=== PATIENT | female | born 1950 | race Caucasian/White ===

== ENCOUNTER 2017-10-13 08:39 | Inpatient (IN) | payer MEDICARE ==
[~2017-10-13] VITALS: Ht 157.5 cm; Wt 48.2 kg
[2017-10-13 09:17] LABS: BASOPHILS % (AUTO) 0.3 % (0-1); EOSINOPHILS # (AUTO) 0.1 X10'3 (0-0.9); EOSINOPHILS % (AUTO) 2.9 % (0-6); HEMATOCRIT 38.8 % (35.0-45.0); HEMOGLOBIN 13.1 g/dl (12.0-16.0); LYMPHOCYTES # (AUTO) 1.4 X10'3 (1.1-4.8); LYMPHOCYTES % (AUTO) 29.7 % (21-51); MEAN CORPUSCULAR HEMOGLOBIN 29.3 PG (27.0-31.0); MEAN CORPUSCULAR HGB CONC 33.8 % (33.0-36.5); MEAN CORPUSCULAR VOLUME 86.8 FL (78-98); MEAN PLATELET VOLUME 7.5 FL (7.4-10.4); MONOCYTES # (AUTO) 0.5 X10'3 (0-0.9); NEUTROPHILS # (AUTO) 2.6 X10'3 (1.8-7.7); NEUTROPHILS % (AUTO) 57.1 % (42-75); PLATELET COUNT 248 X10'3 (140-440); RED BLOOD COUNT 4.48 X10'6 (4.20-5.60); RED CELL DISTRIBUTION WIDTH 13.9 % (11.5-14.5); WHITE BLOOD COUNT 4.6 X10'3 (4.5-11.0)
[2017-10-13 09:24] LABS: PARTIAL THROMBOPLASTIN TIME 27 SECONDS (22-32); PROTHROMBIN TIME 10.2 SECONDS (9.0-12.0)
[2017-10-13 09:30] LABS: ALANINE AMINOTRANSFERASE 22 U/L (12-78); ALBUMIN/GLOBULIN RATIO 1.2 (1.1-1.5); ALKALINE PHOSPHATASE 83 IU/L (46-116); ANION GAP 6 (8-16); ASPARTATE AMINO TRANSFERASE 20 U/L (10-37); BILIRUBIN,TOTAL 0.4 MG/DL (0.1-1.0); BLOOD UREA NITROGEN 11 MG/DL (7-18); BUN/CREATININE RATIO 14.3 (6.6-38.0); CALCIUM 8.8 MG/DL (8.5-10.1); CHLORIDE 105 MMOL/L (99-107); CREATININE 0.77 MG/DL (0.40-0.90); GLUCOSE 99 MG/DL (70-104); POTASSIUM 3.8 MMOL/L (3.5-5.1); SODIUM 139 MMOL/L (135-145); TOTAL CARBON DIOXIDE 27.6 MMOL/L (24-32); TOTAL PROTEIN 7.3 G/DL (6.4-8.2); eGFR 75 ML/MIN
[2017-10-13 09:39] LABS: ETHANOL < 0.010 GM/DL (0.0-0.010); PHOSPHORUS 3.8 MG/DL (2.3-4.5)
[2017-10-13 10:08] LABS: CLARITY,URINE CLEAR (Clear); COLOR,URINE STRAW (Yellow); GLUCOSE, URINE NEGATIVE (Neg); KETONES,URINE NEGATIVE (Neg); LEUKOCYTE ESTERASE ,URINE NEGATIVE (Neg); NITRITES, URINE NEGATIVE (Neg); OCCULT BLOOD,URINE NEGATIVE (Neg); PH,URINE 6.5 (4.8-8.0); PROTEIN,URINE NEGATIVE (Neg); UROBILINOGEN,URINE 0.2 E.U/dL (0.2-1.0)
[2017-10-13 10:13] LABS: UA COLLECTION TYPE VOIDED
[2017-10-13] MEDS ORDERED: NO HOME MEDS (10:13)
[2017-10-13 10:25] LABS: URINE AMPHETAMINE SCREEN NEGATIVE (Neg); URINE BARBITUATE SCREEN NEGATIVE (Neg); URINE BENZODIAZEPINES SCREEN NEGATIVE (Neg); URINE CANNABINOID SCREEN NEGATIVE (Neg); URINE COCAINE SCREEN NEGATIVE (Neg); URINE METHADONE SCREEN NEGATIVE (Neg); URINE OPIATE SCREEN NEGATIVE (Neg); URINE PHENCYCLIDINE SCREEN NEGATIVE (Neg)
[2017-10-13] MEDS ORDERED: magnesium hydroxide 30ml (MOM) UD suspension PO PRN (12:35)
[2017-10-13] MEDS ORDERED: potassium Cl 40MEQ/NS 500ml 500 ML IV PRN ×2 (12:35)
[2017-10-13] MEDS ORDERED: potassium Cl 20 mEq SR tablet PO PRN ×2 (12:35)
[2017-10-13] MEDS ORDERED: magnesium Cl slow-release 64mg tablet PO PRN (12:35)
[2017-10-13] MEDS ORDERED: HYDROcodone/acetaminophen 10/325mg tab PO PRN (12:35)
[2017-10-13] MEDS ORDERED: HYDROcodone/acetaminophen 5mg/325mg tablet PO PRN (12:35)
[2017-10-13] MEDS ORDERED: acetaminophen 325mg tablet PO PRN ×2 (12:35)
[2017-10-13] MEDS ORDERED: ondansetron/PF 4mg/2ml inj IV PRN (12:35)
[2017-10-13] MEDS: K and/or MAG REPLACEMENT MC SCH (12:35)
[2017-10-13] MEDS ORDERED: magnesium 4gm in 100ml NS 100 ML IV PRN (12:35)
[2017-10-13] MEDS ORDERED: mag hydrox/Alum hydrox/simeth 30ml oral suspension PO PRN (12:35)
[2017-10-13] MEDS ORDERED: magnesium 1gm/100ml D5W IVPB 100 ML IV PRN (12:35)
[2017-10-13 13:13] LABS: HEMOGLOBIN A1C 6.2 % (4.5-6.2)
[2017-10-13 13:30] VITALS: BP 159/91
[2017-10-13] MEDS: aspirin 325mg tablet PO SCH (13:48)
[2017-10-13 19:00] VITALS: BP 167/81
[2017-10-13] MEDS ORDERED: temazepam 15mg capsule PO PRN (21:00)
[2017-10-13 22:00] VITALS: BP 156/80
[2017-10-14 02:00] VITALS: BP 165/93
[2017-10-14 05:00] VITALS: BP 156/84
[2017-10-14 06:36] LABS: HEMATOCRIT 37.6 % (35.0-45.0); HEMOGLOBIN 12.6 g/dl (12.0-16.0); MEAN CORPUSCULAR HEMOGLOBIN 29.1 PG (27.0-31.0); MEAN CORPUSCULAR HGB CONC 33.7 % (33.0-36.5); MEAN CORPUSCULAR VOLUME 86.3 FL (78-98); MEAN PLATELET VOLUME 7.6 FL (7.4-10.4); PLATELET COUNT 227 X10'3 (140-440); RED BLOOD COUNT 4.35 X10'6 (4.20-5.60); RED CELL DISTRIBUTION WIDTH 13.7 % (11.5-14.5); WHITE BLOOD COUNT 4.6 X10'3 (4.5-11.0)
[2017-10-14 06:53] LABS: ALBUMIN 3.5 G/DL (3.4-5.0); ANION GAP 4 (8-16); BLOOD UREA NITROGEN 12 MG/DL (7-18); BUN/CREATININE RATIO 18.8 (6.6-38.0); CALCIUM 8.7 MG/DL (8.5-10.1); CHLORIDE 105 MMOL/L (99-107); CHOL/HDL RATIO 3.9 (0.00-4.99); CHOLESTEROL 238 MG/DL (0-200); CREATININE 0.64 MG/DL (0.40-0.90); GLUCOSE 89 MG/DL (70-104); HDL CHOLESTEROL 61 MG/DL (35-60); LDL CHOLESTEROL 163 MG/DL (50-100); MAGNESIUM 2.1 MG/DL (1.5-2.4); PHOSPHORUS 3.9 MG/DL (2.3-4.5); POTASSIUM 3.7 MMOL/L (3.5-5.1); SODIUM 138 MMOL/L (135-145); TOTAL CARBON DIOXIDE 28.6 MMOL/L (24-32); TRIGLYCERIDES 75 MG/DL (20-135); eGFR > 90 ML/MIN
[2017-10-14] MEDS: K and/or MAG REPLACEMENT MC SCH (08:00)
[2017-10-14] MEDS ORDERED: lisinopril 20mg tablet PO SCH (08:00)
[2017-10-14] MEDS ORDERED: atorvastatin 20mg tablet PO SCH (08:00)
[2017-10-14] MEDS: aspirin 325mg tablet PO SCH (09:26)
[2017-10-14] MEDS: enoxaparin 40mg/0.4ml syringe SQ SCH ×2 (09:27→09:30)
[2017-10-14] MEDS ORDERED: ATOR20TA66 PO (11:58)
[2017-10-14] MEDS ORDERED: LISI-600 PO (11:58)
[2017-10-14] MEDS ORDERED: ASPI81TA52 PO (11:58)
== END 2017-10-14 18:00 | disposition home or self-care (01) | DRG 69 ==
LOC: ER 08:39 → ED HOLD 12:35 → ORTHO 4S 14:11
PROVIDERS: ADMIT Family Medicine; ATTEND Family Medicine
DX: G45.9 Transient cerebral ischemic attack, unspecified (principal); E78.5 Hyperlipidemia, unspecified; I10 Essential (primary) hypertension; Z82.0 Family history of epilepsy and other diseases of the nervous system; Z82.3 Family history of stroke; Z85.3 Personal history of malignant neoplasm of breast; Z90.12 Acquired absence of left breast and nipple; Z88.0 Allergy status to penicillin
CPT/HCPCS: 36415; 70450; 70544; 70551; 71045; 80048; 80053; 80061; 80305; 80320; 81003; 82948; 83036; 83735; 84100; 84443; 84484; 85025; 85027; 85610; 85730; 93005; 93306; 93880; 97116; 97162; 97530; 99285; J1650

== ENCOUNTER 2018-11-03 12:24 | Emergency (ER) | payer MEDICARE ==
[~2018-11-03] VITALS: Ht 154.9 cm; Wt 43.0 kg
[~2018-11-03 12:24] MED LIST: ASPI81TA52 PO; ATOR20TA66 PO; LISI-600 PO
[2018-11-03 12:46] VITALS: BP 116/86
[2018-11-03] MEDS ORDERED: IBUP-1984 PO ×2 (13:53→14:29)
[2018-11-03] MEDS ORDERED: ibuprofen tablet 400 MG TABLET PO ONE (13:55)
== END 2018-11-03 14:34 | disposition home or self-care (01) ==
LOC: ER 12:24
DX: S50.12XA Contusion of left forearm, initial encounter (principal); S50.11XA Contusion of right forearm, initial encounter; I10 Essential (primary) hypertension; Z88.0 Allergy status to penicillin; Z79.82 Long term (current) use of aspirin; Z79.899 Other long term (current) drug therapy; Z98.890 Other specified postprocedural states; W22.8XXA Striking against or struck by other objects, initial encounter; Y93.89 Activity, other specified; Y92.89 Other specified places as the place of occurrence of the external cause; Y99.8 Other external cause status
CPT/HCPCS: 73090; 99283

== ENCOUNTER 2020-05-24 09:31 | Emergency (ER) | payer MEDICARE ==
[~2020-05-24] VITALS: Ht 154.9 cm; Wt 45.9 kg
[~2020-05-24 09:31] MED LIST changes: -LISI-600 PO; +LISI20TA28 PO
[2020-05-24 09:46] VITALS: BP 198/109
== END 2020-05-24 10:41 | disposition home or self-care (01) ==
LOC: ER 09:32
DX: I97.638 Postprocedural hematoma of a circulatory system organ or structure following other circulatory system procedure (principal); Z85.3 Personal history of malignant neoplasm of breast; I10 Essential (primary) hypertension; Z90.11 Acquired absence of right breast and nipple; Z88.0 Allergy status to penicillin; Z79.82 Long term (current) use of aspirin; Z79.899 Other long term (current) drug therapy; Y83.2 Surgical operation with anastomosis, bypass or graft as the cause of abnormal reaction of the patient, or of later complication, without mention of misadventure at the time of the procedure; Y92.89 Other specified places as the place of occurrence of the external cause
CPT/HCPCS: 76882; 99284

== ENCOUNTER 2024-03-30 17:55 | Inpatient (IN) | payer MEDICARE ==
[~2024-03-30] VITALS: Ht 154.9 cm; Wt 45.3 kg
[~2024-03-30 17:55] MED LIST changes: -ASPI81TA52 PO; +ATOR10TA70 PO; -ATOR20TA66 PO; -LISI20TA28 PO; +LOSA50TA64 PO
[2024-03-30 18:55] LABS: BASOPHILS % (AUTO) 0.3 % (0-1); EOSINOPHILS # (AUTO) 0.1 X10'3 (0-0.9); EOSINOPHILS % (AUTO) 2.3 % (0-6); HEMATOCRIT 37.5 % (35.0-45.0); HEMOGLOBIN 12.6 g/dl (12.0-16.0); LYMPHOCYTES # (AUTO) 1.1 X10'3 (1.1-4.8); LYMPHOCYTES % (AUTO) 20.1 % (21-51); MEAN CORPUSCULAR HEMOGLOBIN 29.5 PG (27.0-31.0); MEAN CORPUSCULAR HGB CONC 33.6 g/dL (33.0-36.5); MEAN PLATELET VOLUME 7.7 FL (7.4-10.4); MONOCYTES # (AUTO) 0.5 X10'3 (0-0.9); MONOCYTES % (AUTO) 9.6 % (2-12); NEUTROPHILS # (AUTO) 3.6 X10'3 (1.8-7.7); NEUTROPHILS % (AUTO) 67.7 % (42-75); PLATELET COUNT 248 X10'3 (140-440); RED BLOOD COUNT 4.26 X10'6 (4.20-5.60); RED CELL DISTRIBUTION WIDTH 13.7 % (11.5-14.5); WHITE BLOOD COUNT 5.3 X10'3 (4.5-11.0)
[2024-03-30 19:04] LABS: ALBUMIN 4.1 G/DL (3.4-5.0); ANION GAP 11 (8-16); BLOOD UREA NITROGEN 8 MG/DL (7-18); BUN/CREATININE RATIO 12.9 (10.0-20.0); CALCIUM 9.2 MG/DL (8.5-10.1); CHLORIDE 101 MMOL/L (99-107); CREATININE 0.62 MG/DL (0.40-0.90); GLUCOSE 147 MG/DL (70-104); POTASSIUM 3.5 MMOL/L (3.5-5.1); SODIUM 139 MMOL/L (135-145); TOTAL CARBON DIOXIDE 27.2 MMOL/L (24-32); eCRCL 57 ML/MIN; eGFR > 90 ML/MIN
[2024-03-30 19:06] LABS: APTT 27 SECONDS (22-32)
[2024-03-30 19:17] LABS: PROTHROMBIN TIME 10.8 SECONDS (9.0-12.0)
[2024-03-30] MEDS ORDERED: TRAM50TA2 PO (19:39)
[2024-03-30] MEDS ORDERED: CLOP75TA34 PO (19:39)
[2024-03-30] MEDS ORDERED: ASPI-1265 PO (19:39)
[2024-03-30] MEDS ORDERED: LISI20TA28 PO (19:39)
[2024-03-30] MEDS ORDERED: METO-395 PO (19:39)
[2024-03-30] MEDS: traMADol 50MG tablet PO ONE (20:30)
[2024-03-30] MEDS ORDERED: potassium Cl 40MEQ/1/2NS 520ml 520 ML IV PRN (22:45)
[2024-03-30] MEDS ORDERED: magnesium sulf-water 4G/100mL 100 ML IV PRN (22:45)
[2024-03-30] MEDS ORDERED: magnesium Cl slow-release 64mg tablet PO PRN (22:45)
[2024-03-30] MEDS ORDERED: acetaminophen 325mg tablet PO PRN (22:45)
[2024-03-30] MEDS ORDERED: mag hydrox/Alum hydrox/simeth 30ml oral suspension PO PRN (22:45)
[2024-03-30] MEDS ORDERED: potassium Cl 20 mEq SR tablet PO PRN (22:45)
[2024-03-30] MEDS ORDERED: ondansetron/PF 4mg/2ml inj IV PRN (22:45)
[2024-03-30] MEDS ORDERED: magnesium sulf-water 2g/50mL 50 ML IV PRN (22:45)
[2024-03-30 23:55] VITALS: BP 195/78; PULSE 72; RESP 16; TEMP 98; O2SAT 97
[2024-03-31] VITALS (12 sets, daily range): BP systolic 150–201; BP diastolic 78–101; PULSE 57–132; RESP 13–18; TEMP 97.9–98; O2SAT 93–99
[2024-03-31] MEDS: normal saline 1000ml 1,000 ML IV SCH (00:16)
[2024-03-31 06:19] LABS: BASOPHILS % (AUTO) 0.6 % (0-1); EOSINOPHILS # (AUTO) 0.2 X10'3 (0-0.9); EOSINOPHILS % (AUTO) 4.7 % (0-6); HEMOGLOBIN 12.3 g/dl (12.0-16.0); LYMPHOCYTES # (AUTO) 1.4 X10'3 (1.1-4.8); LYMPHOCYTES % (AUTO) 30.5 % (21-51); MEAN CORPUSCULAR HEMOGLOBIN 29.7 PG (27.0-31.0); MEAN CORPUSCULAR HGB CONC 34.3 g/dL (33.0-36.5); MEAN CORPUSCULAR VOLUME 86.6 FL (78-98); MEAN PLATELET VOLUME 7.8 FL (7.4-10.4); MONOCYTES # (AUTO) 0.6 X10'3 (0-0.9); MONOCYTES % (AUTO) 13.3 % (2-12); NEUTROPHILS # (AUTO) 2.4 X10'3 (1.8-7.7); NEUTROPHILS % (AUTO) 50.9 % (42-75); PLATELET COUNT 225 X10'3 (140-440); RED BLOOD COUNT 4.16 X10'6 (4.20-5.60); RED CELL DISTRIBUTION WIDTH 13.6 % (11.5-14.5); WHITE BLOOD COUNT 4.7 X10'3 (4.5-11.0)
[2024-03-31 06:35] LABS: ALANINE AMINOTRANSFERASE 16 U/L (12-78); ALBUMIN 3.7 G/DL (3.4-5.0); ALBUMIN/GLOBULIN RATIO 1.3 (1.1-1.5); ALKALINE PHOSPHATASE 86 IU/L (46-116); ANION GAP 8 (8-16); ASPARTATE AMINO TRANSFERASE 20 U/L (10-37); BILIRUBIN,TOTAL 0.6 MG/DL (0.1-1.0); BLOOD UREA NITROGEN 5 MG/DL (7-18); BUN/CREATININE RATIO 8.8 (10.0-20.0); CHLORIDE 104 MMOL/L (99-107); CHOL/HDL RATIO 2.9 (0.00-4.99); CHOLESTEROL 178 MG/DL (0-200); CREATININE 0.57 MG/DL (0.40-0.90); GLUCOSE 91 MG/DL (70-104); HDL CHOLESTEROL 62 MG/DL (35-60); LDL CHOLESTEROL 103 MG/DL (50-100); POTASSIUM 3.3 MMOL/L (3.5-5.1); SODIUM 140 MMOL/L (135-145); TOTAL CARBON DIOXIDE 27.8 MMOL/L (24-32); TOTAL PROTEIN 6.6 G/DL (6.4-8.2); TRIGLYCERIDES 75 MG/DL (20-135); eCRCL 62 ML/MIN; eGFR > 90 ML/MIN
[2024-03-31] MEDS: aspirin 81mg, enteric-coated 1 TAB TABLET.DR PO SCH (08:00)
[2024-03-31] MEDS: clopidogrel 75mg tablet PO SCH (08:00)
[2024-03-31] MEDS: K and/or MAG REPLACEMENT MC SCH (08:00)
[2024-03-31] MEDS: atorvastatin 20mg tablet PO SCH (08:00)
[2024-03-31] MEDS: magnesium hydroxide 30ml (MOM) UD suspension PO PRN (09:54)
[2024-03-31] MEDS: potassium Cl 20 mEq SR tablet PO PRN (12:17)
[2024-03-31] MEDS ORDERED: LORazepam 0.5 MG tablet PO PRN (18:30)
[2024-03-31] MEDS ORDERED: LORazepam 2 mg/ml vial IV PRN (18:30)
[2024-03-31] MEDS: HYDROchlorothiazide 25mg tablet PO ONE ×2 (18:40→20:39)
[2024-03-31] MEDS: HYDROchlorothiazide 12.5mg capsule PO ONE (18:45)
[2024-03-31] MEDS: amLODIPine 5mg tablet PO ONE (20:35)
[2024-03-31] MEDS: acetaminophen 325mg tablet PO SCH (20:36)
[2024-04-01] VITALS (9 sets, daily range): BP systolic 163–214; BP diastolic 85–99; PULSE 85–126; RESP 13–18; TEMP 97.7–98.1; O2SAT 95–99
[2024-04-01 06:20] LABS: BASOPHILS % (AUTO) 0.7 % (0-1); EOSINOPHILS # (AUTO) 0.2 X10'3 (0-0.9); EOSINOPHILS % (AUTO) 5.4 % (0-6); HEMATOCRIT 36.3 % (35.0-45.0); HEMOGLOBIN 12.3 g/dl (12.0-16.0); LYMPHOCYTES # (AUTO) 0.9 X10'3 (1.1-4.8); LYMPHOCYTES % (AUTO) 23.9 % (21-51); MEAN CORPUSCULAR HEMOGLOBIN 29.8 PG (27.0-31.0); MEAN CORPUSCULAR HGB CONC 33.9 g/dL (33.0-36.5); MEAN CORPUSCULAR VOLUME 87.7 FL (78-98); MEAN PLATELET VOLUME 7.8 FL (7.4-10.4); MONOCYTES # (AUTO) 0.5 X10'3 (0-0.9); MONOCYTES % (AUTO) 13.5 % (2-12); NEUTROPHILS # (AUTO) 2.2 X10'3 (1.8-7.7); NEUTROPHILS % (AUTO) 56.5 % (42-75); PLATELET COUNT 216 X10'3 (140-440); RED BLOOD COUNT 4.14 X10'6 (4.20-5.60); RED CELL DISTRIBUTION WIDTH 13.6 % (11.5-14.5); WHITE BLOOD COUNT 3.9 X10'3 (4.5-11.0)
[2024-04-01 07:02] LABS: ALANINE AMINOTRANSFERASE 17 U/L (12-78); ALBUMIN 3.9 G/DL (3.4-5.0); ALBUMIN/GLOBULIN RATIO 1.3 (1.1-1.5); ALKALINE PHOSPHATASE 86 IU/L (46-116); ANION GAP 8 (8-16); ASPARTATE AMINO TRANSFERASE 14 U/L (10-37); BILIRUBIN,TOTAL 0.6 MG/DL (0.1-1.0); BLOOD UREA NITROGEN 5 MG/DL (7-18); BUN/CREATININE RATIO 9.6 (10.0-20.0); CALCIUM 9.2 MG/DL (8.5-10.1); CHLORIDE 105 MMOL/L (99-107); CREATININE 0.52 MG/DL (0.40-0.90); GLUCOSE 94 MG/DL (70-104); POTASSIUM 3.9 MMOL/L (3.5-5.1); SODIUM 139 MMOL/L (135-145); TOTAL CARBON DIOXIDE 25.6 MMOL/L (24-32); TOTAL PROTEIN 6.9 G/DL (6.4-8.2); eCRCL 68 ML/MIN; eGFR > 90 ML/MIN
[2024-04-01] MEDS: HYDROchlorothiazide 12.5mg capsule PO SCH (07:40)
[2024-04-01] MEDS: amLODIPine 5mg tablet PO SCH (07:42)
[2024-04-01] MEDS ORDERED: HYDR25TA5 PO ×2 (11:06→11:21)
[2024-04-01] MEDS ORDERED: NOR5T PO (11:06)
[2024-04-01] MEDS ORDERED: ATOR20TA66 PO (11:06)
[2024-04-01] MEDS ORDERED: HYDR50TA46 PO (11:21)
[2024-04-01] MEDS ORDERED: LISI20TA28 PO (11:21)
[2024-04-01] MEDS ORDERED: atenolol 25mg tablet PO ONE (11:25)
[2024-04-01] MEDS: atenolol 25mg tablet PO ONE (11:47)
[2024-04-01] MEDS: lisinopril 20mg tablet PO ONE (11:47)
[2024-04-01] MEDS: traMADol 50MG tablet PO PRN (12:21)
[2024-04-02] MEDS ORDERED: metoprolol succinate 25mg (24-HOUR) SR. Tablet PO SCH (08:00)
[2024-04-02] MEDS ORDERED: amLODIPine 5mg tablet PO SCH (08:00)
== END 2024-04-01 15:05 | disposition home health service (06) | DRG 305 ==
LOC: ER 17:55 → ED HOLD 21:54 → ORTHO 4S 23:55
PROVIDERS: ADMIT Surgery; ATTEND Internal Medicine
DX: I16.0 Hypertensive urgency (principal); I10 Essential (primary) hypertension; E78.5 Hyperlipidemia, unspecified; I48.91 Unspecified atrial fibrillation; Z79.82 Long term (current) use of aspirin; Z88.0 Allergy status to penicillin; Z79.01 Long term (current) use of anticoagulants; Z79.899 Other long term (current) drug therapy; Z85.3 Personal history of malignant neoplasm of breast
CPT/HCPCS: 36415; 70450; 70551; 71045; 80048; 80053; 80061; 82948; 84484; 85025; 85610; 85730; 87081; 92508; 92616; 93005; 97116; 97161; 97530; 99291; G0378; J7030

== ENCOUNTER → 2024-05-01 | Emergency (ER) | payer MEDICARE ==
[~2024-05-01] VITALS: Ht 152.4 cm; Wt 43.4 kg
[~2024-05-01] MED LIST changes: +ASPI-1265 PO; -ATOR10TA70 PO; +ATOR20TA66 PO; +CLOP75TA34 PO; +HYDR25TA5 PO; +HYDR50TA46 PO; +LISI20TA28 PO; -LOSA50TA64 PO; +METO-395 PO; +NOR5T PO; +TRAM50TA2 PO
[2024-05-01 15:25] LABS: BASOPHILS % (AUTO) 0.4 % (0-1); EOSINOPHILS # (AUTO) 0.2 X10'3 (0-0.9); EOSINOPHILS % (AUTO) 2.5 % (0-6); HEMATOCRIT 35.8 % (35.0-45.0); HEMOGLOBIN 11.9 g/dl (12.0-16.0); LYMPHOCYTES # (AUTO) 1.2 X10'3 (1.1-4.8); MEAN CORPUSCULAR HEMOGLOBIN 29.1 PG (27.0-31.0); MEAN CORPUSCULAR HGB CONC 33.1 g/dL (33.0-36.5); MEAN CORPUSCULAR VOLUME 87.9 FL (78-98); MEAN PLATELET VOLUME 7.4 FL (7.4-10.4); MONOCYTES # (AUTO) 0.6 X10'3 (0-0.9); MONOCYTES % (AUTO) 9.4 % (2-12); NEUTROPHILS # (AUTO) 4.4 X10'3 (1.8-7.7); NEUTROPHILS % (AUTO) 68.7 % (42-75); PLATELET COUNT 282 X10'3 (140-440); RED BLOOD COUNT 4.08 X10'6 (4.20-5.60); RED CELL DISTRIBUTION WIDTH 14.5 % (11.5-14.5); WHITE BLOOD COUNT 6.5 X10'3 (4.5-11.0)
[2024-05-01 15:39] LABS: ALANINE AMINOTRANSFERASE 29 U/L (12-78); ALBUMIN 3.9 G/DL (3.4-5.0); ALBUMIN/GLOBULIN RATIO 1.2 (1.1-1.5); ALKALINE PHOSPHATASE 88 IU/L (46-116); ANION GAP 7 (8-16); ASPARTATE AMINO TRANSFERASE 21 U/L (10-37); BILIRUBIN,TOTAL 0.5 MG/DL (0.1-1.0); BLOOD UREA NITROGEN 11 MG/DL (7-18); BUN/CREATININE RATIO 19.6 (10.0-20.0); CHLORIDE 106 MMOL/L (99-107); CREATININE 0.56 MG/DL (0.40-0.90); GLUCOSE 91 MG/DL (70-104); POTASSIUM 3.7 MMOL/L (3.5-5.1); SODIUM 142 MMOL/L (135-145); TOTAL PROTEIN 7.1 G/DL (6.4-8.2); eCRCL 60 ML/MIN; eGFR > 90 ML/MIN
[2024-05-01 16:10] VITALS: BP 184/111; PULSE 84; RESP 16; O2SAT 99
[2024-05-01] MEDS: cloNIDine 0.1 mg tablet PO ONE (16:12)
[2024-05-01 16:23] VITALS: TEMP 98
== END | disposition home or self-care (01) ==
LOC: ER 13:50
DX: I10 Essential (primary) hypertension (principal); Z88.0 Allergy status to penicillin; Z86.73 Personal history of transient ischemic attack (TIA), and cerebral infarction without residual deficits; Z85.3 Personal history of malignant neoplasm of breast; Z79.899 Other long term (current) drug therapy
CPT/HCPCS: 36415; 80053; 85025; 99285

== ENCOUNTER 2025-01-29 09:12 | Emergency (ER) | payer MEDICARE ==
[~2025-01-29] VITALS: Ht 157.5 cm; Wt 50.0 kg
[~2025-01-29 09:12] MED LIST changes: -LISI20TA28 PO
[2025-01-29 09:28] VITALS: TEMP 98
--- NOTE | 2025-01-29 09:56 | RADIOLOGY REPORT ---
CLINICAL INDICATION: Shoulder Pain,right TECHNIQUE: DI SHOULDER, COMPLETE (MIN 2 VWS) right Comparison: None FINDINGS/IMPRESSION: : Comminuted and displaced fracture of the proximal humerus.
--- NOTE | 2025-01-29 10:54 | Physician Documentation ---
History of Present Illness ~ Chief Complaint: Shoulder pain Stated Complaint: FALL SHOULDER PAIN Time Seen by MD: 09:56 OK to notify your PCP?: Yes Primary Medical Doctor: ya Source: patient Mode of Arrival: POV Exam Limitations: no limitations HPI 75-year-old right-handed female presenting with a right shoulder pain which started last night after she had a ground level fall. She states she got up and was walking to the bathroom and tripped over the adamant and landed on her right shoulder. She was able to get herself up off the ground and tried to sleep the rest of the night but since the pain was not improving she decided to come to the ER. She also reports pain in the middle of her back where she has a history of a thoracic T12 compression fracture. She denies any other pain states no neck or lower back pain. She did not hit her head there was no loss of consciousness she is on Plavix and aspirin. No pre-arrival treatment. Tetanus within 5 years?: No Medication Reconciliation Allergies: Coded Allergies: Penicillins (Unverified Allergy, Unknown, 05/24/20) Scheduled Amlodipine Besylate (Amlodipine Besylate), 10 MG PO DAILY Aspirin (Aspirin), 1 TAB PO DAILY, (Reported) Atorvastatin Calcium (Atorvastatin Calcium), 80 MG PO DAILY Clopidogrel Bisulfate (Clopidogrel), 1 TAB PO DAILY, (Reported) Gabapentin (Gabapentin), 1 CAP PO Q8H Hydralazine HCl (Hydralazine HCl), 1 TAB PO Q12H Hydrochlorothiazide (Hydrochlorothiazide), 1 TAB PO DAILY Hydrochlorothiazide (Hydrochlorothiazide), 1 TAB PO DAILY Metoprolol Succinate (Metoprolol Succinate), 1 TAB PO DAILY, (Reported) Scheduled PRN Tramadol Hcl (Tramadol Hcl), 1 TAB PO BID PRN for pain, (Reported) Tramadol Hcl (Tramadol Hcl), 1-2 TAB PO TID PRN for pain Past Medical History Past Medical History: CVA/TIA/Stroke, Hypertension, Breast Cancer Past Surgical History: other Other Past Surgical History: Mastectomy Alcohol Use: None Drug Use: none Lives In: Home Occupation: retired Review of Systems All Other Systems at this time: Reviewed and Negative Physical Exam Vital Signs: Temperature: 98.0, Source: Temporal, Heart Rate: 90, Respiratory Rate: 16, BP: 138/69, Pulse Oximetry: 99, Weight: 50.000 Oxygen Flow Rate: 0 Physical Exam GENERAL: Alert, no acute distress. HEENT: NCAT, EOMI, PERRLA, normal oropharynx, moist oral mucosa. NO EDEMA, ECCHYMOSIS OR EVIDENCE OF TRAUMA TO FACE OR HEAD. NECK: Supple, trachea midline. CARDIAC: Regular rate and rhythm, no murmurs, rubs, or gallops. Equal distal pulses. No lower extremity edema, cap refill less than 2 seconds. RESPIRATORY: Equal breath sounds, clear to auscultation bilaterally, no respiratory distress. GASTROINTESTINAL: Non distended, soft, nontender, No guarding or rebound. MUSCULOSKELETAL: TTP OVER THORACIC SPINOUS PROCESSES. NTTP OVER CERVICAL OR LUMBAR SPINOUS PROCESSES. Normal range of motion OF CERVICAL SPINE. RIGHT SHOULDER TTP, UNABLE TO MOVE RIGHT SHOULDER DUE TO PAIN. NEUROLOGICAL: Awake, alert, and oriented x 3. SKIN: Warm/dry, no pallor, no rash. PSYCH: Alert and appropriate. Affect congruent with mood. Speech is clear. Good eye contact. Procedures Splinting Location: RIGHT SHOULDER Pre-Made Type: SHOULDER IMMOBILIZER Pre-Proc Neuro Vasc Exam: normal Post-Proc Neuro Vasc Exam: normal Splint Placed By: Nurse Progress Progress Note PLACED RIGHT SHOULDER IN SHOULDER IMMOBILIZER Results/Orders Reviewed/noted all lab results: Yes Results/Orders Orders - LEONIDAS MEYERS Ct Thoracic Spine (01/29/25 10:29) General Nursing Order (01/29/25 10:31) Completed Orders - LEONIDAS MEYERS Tramadol Tablet (Ultram Tablet) (01/29/25 10:30) Acetaminophen 325mg Tablet (Tylenol Tabl (01/29/25 10:30) Ct Thoracic Spine (01/29/25 10:29) Gabapentin Capsule (Neurontin Capsule) (01/29/25 10:29) Medications Received in ER Medications (Trade) Dose Ordered Sig/Diann Route PRN Reason Start Time Stop Time Status Last Admin Dose Admin (Ultram tablet) 100 mg ONCE ONCE PO 01/29/25 10:30 01/29/25 10:31 DC 01/29/25 10:55 100 MG (Tylenol tablet) 650 mg ONCE ONCE PO 01/29/25 10:30 01/29/25 10:31 DC 01/29/25 10:55 650 MG (Neurontin capsule) 100 mg STAT STAT PO 01/29/25 10:29 01/29/25 10:32 DC 01/29/25 10:55 100 MG Vital Signs 01/29/25 01/29/25 09:28 10:55 Temp 98.0 Pulse 90 Resp 16 16 B/P (MAP) 138/69 Pulse Ox 99 O2 Flow Rate 0 Re-Evaluation Re-Evaluation : Re-Evaluation: Improved Progress PAIN IMPROVED AFTER TREATMENT HERE EKG/XRAY/CT/US/VASC/MRI CT : Impression Medical Decision Making Additional information obtaine: N/A Findings NA Differential Dx:Considerations: Include: AC separation, Adhesive capsulitis, arthritis, Bicipital tendonitis, Calcific tendonitis, Cervical disc disease, Contusion, Dislocation, Fracture: Humerus, Fracture: Scapula, Fracture: Clavicle, Gallbladder Disease, Hematoma, Impingement syndrome, Myocardial infarction, Neurovascular Injury, Rotator cuff injury, SC dislocation, Sprain, Subacromial bursitis, other Additional Comments PATIENT HAS KNOWN THORACIC COMPRESSION FRACTURE FROM PREVIOUS FALL AND THE ONLY LEVEL THAT SHOWS FRACTURE IS T10 AND THUS THIS IS LIKELY THE LEVEL THAT SHE BROKE BEFORE/THUS LIKELY OLD Departure Time of Disposition: 10:53 Disposition: 01 HOME / SELF CARE / HOMELESS Impression: Primary Impression: Fracture of humerus Qualified Codes: S42.351A - Displaced comminuted fracture of shaft of humerus, right arm, initial encounter for closed fracture Additional Impressions: Mid-back pain, acute Ground-level fall Condition: Stable Discharge Instructions: Humerus Fracture Treated With ORIF, Care After Additional Instructions: CONTACT [facility] DR. DUNCAN TO SCHEDULE ER FOLLOW UP HE IS OUR ONCALL PROVIDER TODAY. PAIN MEDICATION SENT TO PHARMACY IF PAIN NOT CONTROLLED RETURN TO ER CLINICAL INDICATION: Shoulder Pain,right TECHNIQUE: DI SHOULDER, COMPLETE (MIN 2 VWS) right Comparison: None FINDINGS/IMPRESSION: : Comminuted and displaced fracture of the proximal humerus. : CT CT THORACIC SPINE INDICATION: ground level fall midback pain h/o thoracic compression fx t12 COMPARISON: CT CT T L SPINE on DOS: 02/25/24 TECHNIQUE: Multiple axial CT images of the thoracic spine were obtained using bone algorithm. Axial and coronal reformatting was done. Bone and soft tissue windows were reviewed. Radiation Dose Information: CT Dose: CTDI volume is 7.6 mGy. Dose-length product is 241.8 mGy*cm FINDINGS: Diffuse osteopenia. Multilevel degenerative changes of the spine. No acute subluxation. Moderate to severe age indeterminate T10 vertebral body compression fracture. IMPRESSION: Moderate to severe age indeterminate T10 vertebral body compression fracture. No CT evidence of acute fracture or traumatic mal-alignment of the bony thoracic spine. Radiation optimization: All CT scans at this facility use at least one of these dose optimization techniques: automated exposure control mA and/or kV adjustment per patient size (includes targeted exams where dose is matched to clinical indication) or iterative reconstruction. Referrals: NO PRIMARY CARE PROVIDER (PCP) Prescriptions Tramadol Hcl (Tramadol Hcl) 50 Mg Tablet 1-2 TAB PO TID PRN for pain for 10 Days, #60 TAB DX: DISPLACED COMMUNITED HUMERAL FRACTURE S42.2 Prov: LEONIDAS MEYERS 01/29/25 Gabapentin (Gabapentin) 100 Mg Capsule 1 CAP PO Q8H for 10 Days, #30 CAP 0 Refills Prov: LEONIDAS MEYERS 01/29/25 Education Educated: Patient Educated regarding: diagnosis, treatment, need for follow up Signature Scribe Signature: kirill Attestation: LEONIDAS Cramer Jan 29, 2025 10:54
[2025-01-29] MEDS ORDERED: GABA-530 PO (10:55)
[2025-01-29] MEDS ORDERED: TRAM50TA2 PO (10:55)
--- NOTE | 2025-01-29 11:21 | RADIOLOGY REPORT ---
EXAM: CT CT THORACIC SPINE INDICATION: ground level fall midback pain h/o thoracic compression fx t12 COMPARISON: CT CT T L SPINE on DOS: 02/25/24 TECHNIQUE: Multiple axial CT images of the thoracic spine were obtained using bone algorithm. Axial and coronal reformatting was done. Bone and soft tissue windows were reviewed. Radiation Dose Information: CT Dose: CTDI volume is 7.6 mGy. Dose-length product is 241.8 mGy*cm FINDINGS: Diffuse osteopenia. Multilevel degenerative changes of the spine. No acute subluxation. Moderate to severe age indeterminate T10 vertebral body compression fracture. IMPRESSION: Moderate to severe age indeterminate T10 vertebral body compression fracture. No CT evidence of acute fracture or traumatic mal-alignment of the bony thoracic spine. Radiation optimization: All CT scans at this facility use at least one of these dose optimization techniques: automated exposure control mA and/or kV adjustment per patient size (includes targeted exams where dose is matched to clinical indication) or iterative reconstruction.
[2025-01-29 12:01] VITALS: BP 158/82; PULSE 87; RESP 16; O2SAT 97
== END 2025-01-29 12:14 | disposition home or self-care (01) ==
LOC: ER 09:13
DX: S42.351A Displaced comminuted fracture of shaft of humerus, right arm, initial encounter for closed fracture (principal); M54.9 Dorsalgia, unspecified; I10 Essential (primary) hypertension; Z86.73 Personal history of transient ischemic attack (TIA), and cerebral infarction without residual deficits; Z85.3 Personal history of malignant neoplasm of breast; Z88.0 Allergy status to penicillin; Z90.10 Acquired absence of unspecified breast and nipple; Z79.899 Other long term (current) drug therapy; W01.0XXA Fall on same level from slipping, tripping and stumbling without subsequent striking against object, initial encounter; Y93.01 Activity, walking, marching and hiking; Y92.89 Other specified places as the place of occurrence of the external cause; Y99.8 Other external cause status
CPT/HCPCS: 29105; 72128; 73030; 99284; A4565

== ENCOUNTER 2025-02-09 08:20 | Observation (INO) | payer MEDICARE ==
[2025-02-05 11:32] LABS: MEAN PLATELET VOLUME 6.8 FL (7.4-10.4); PRE OP HEMATOCRIT 32.8 % (35.0-45.0); PRE OP PLATELET COUNT 383 X10'3 (140-440); PRE OP WHITE BLOOD COUNT 6.3 10'3 (4.8-10.8); RED CELL DISTRIBUTION WIDTH 14.4 % (11.5-14.5)
--- NOTE | 2025-02-05 11:39 | ELECTROCARDIOGRAPH REPORT ---
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 TOO Thurman Measurements Intervals [place] Rate: 69 P: 54 [place]: 129 QRS: 40 QRSD: 87 T: 58 QT: 398 QTc: 427 Interpretive Statements Sinus rhythm Left ventricular hypertrophy Electronically Signed On 02-05-2025 12:58:[address] TOO Thurman Please click the below link to view image of tracing.
[2025-02-05 11:40] LABS: PRE OP HEMOGLOBIN 11.0 g/dL (12.0-16.0)
[2025-02-05 11:51] LABS: CREATININE 0.52 MG/DL (0.40-0.90); PRE OP ALT 16 U/L (30-65); PRE OP ANION GAP 8 (8-16); PRE OP AST 19 U/L (10-37); PRE OP BILIRUB, TOTAL 0.7 MG/DL (0.0-1.0); PRE OP GLUCOSE 98 MG/DL (70-104); PRE OP POTASSIUM 3.6 MMOL/L (3.4-5.1); PRE OP SODIUM 134 MMOL/L (135-145); TOTAL CARBON DIOXIDE 30.2 MMOL/L (24-32); eGFR > 90 ML/MIN
[2025-02-09] VITALS (20 sets, daily range): BP systolic 117–151; BP diastolic 61–75; PULSE 69–95; RESP 14–18; TEMP 97.1–98; O2SAT 92–100
[~2025-02-09] VITALS: Ht 154.9 cm; Wt 49.9 kg
[2025-02-09] MEDS: DOCUMENT DATE & TIME OF BETA-BLOCKER PO ONE (05:00)
[~2025-02-09 08:20] MED LIST changes: +AMLO5TAB16 PO; -ASPI-1265 PO; -ATOR20TA66 PO; -HYDR25TA5 PO; -HYDR50TA46 PO; +LISI40TA20 PO; -NOR5T PO; +ROSU20TA98 PO
[2025-02-09] MEDS ORDERED: ROPIVAcaine 0.5% (5mg/ml) 30ml vial ONE ×2 (09:12→11:04)
[2025-02-09] MEDS ORDERED: ketorolac trometh 30MG/ML vial 30 MG/ML VIAL ONE (09:12)
[2025-02-09] MEDS: vancomycin/NS 1 GM ADD-VANTAGE 250 ML IV ONE ×2 (09:26)
[2025-02-09] MEDS: ceFAZolin 2gm/dext,iso 50mL 50 ML IV ONE (09:27)
[2025-02-09] MEDS ORDERED: propofol inj 20 ML IV ONE (11:04)
[2025-02-09] MEDS ORDERED: dexamethasone sod phosphate 4mg/ml inj. ONE ×2 (11:15)
[2025-02-09] MEDS ORDERED: ondansetron/PF 4mg/2ml inj ONE (11:15)
[2025-02-09] MEDS ORDERED: fentaNYL/PF 50MCG/1 ML 2ML syringe ONE (11:21)
[2025-02-09] MEDS ORDERED: midazolam 1 mg/ML 2ml injection ONE (11:21)
[2025-02-09] MEDS ORDERED: magnesium hydroxide 30ml (MOM) UD suspension PO PRN (11:35)
[2025-02-09] MEDS ORDERED: bisacodyl 10mg suppository rectal RC PRN (11:35)
[2025-02-09] MEDS ORDERED: HYDROmorphone/PF 0.2 MG/ML SYRINGE IV PRN ×2 (11:35→13:00)
[2025-02-09] MEDS: potassium cl 20mEq in 1/2 NS 1,000 ML IV SCH (11:35)
[2025-02-09] MEDS ORDERED: PCA WASTE DOCUMENTATION 1 MG ML MC SCH (11:35)
[2025-02-09] MEDS ORDERED: ondansetron/PF 4mg/2ml inj IV PRN ×2 (11:35→13:00)
[2025-02-09] MEDS ORDERED: oxyCODONE IR 5mg (immed. release) tablet PO PRN (11:35)
[2025-02-09] MEDS: ROPIVAcaine 0.5% (5mg/ml) 30ml vial IJ ONE (12:08)
[2025-02-09] MEDS ORDERED: acetaminophen 1,000mg/100ml IV 100 ML IV PRN (13:00)
[2025-02-09] MEDS ORDERED: fentaNYL/PF 50MCG/1 ML 2ML syringe IV PRN ×2 (13:00)
[2025-02-09] MEDS ORDERED: hydrALAZINE 20mg/ml inj. IV PRN (13:00)
[2025-02-09] MEDS ORDERED: labetalol 20mg/4ml (5mg/ml) syringe IV PRN (13:00)
--- NOTE | 2025-02-09 13:30 | OPERATIVE REPORT ---
Operative Report Operative Report OPERATIVE REPORT [facility] [address] [place] [address] Date of service: February 09, 2025 PREOPERATIVE DIAGNOSIS S42.241A-812.01 Closed 4-part fracture of surgical neck of right humerus, initial encounter POSTOPERATIVE DIAGNOSIS S42.241A-812.01 Closed 4-part fracture of surgical neck of right humerus, initial encounter Operation Performed [id number] Open Tx, Proximal Humeral Fx, with Pros Replacemen [id number] Tenodesis, Long Tendon, Biceps with this modifier: RT Procedure: Right total shoulder arthroplasty, reverse prosthesis for treatment of a comminuted and displaced proximal humeral fracture. Biceps tenodesis, right shoulder Surgeon: Dr. Orion Gomez [employer] Operator: Celia Melton PA-C Anesthesiologist: Dr. Curtis Anesthesia: Gen. anesthetic and right scalene block Indications: 75-year-old female with a severely comminuted and intra-articular fracture of the proximal humerus involving the tuberosities and humeral head with displacement which does not appear amenable to internal fixation. 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 This facilitated operative exposure, manipulation and handling of tissues, placement of any implants, and accomplishment of wound closure. Findings: There was a severely comminuted and intra-articular fracture of the proximal humerus involving the tuberosities and humeral head with displacement which was not amenable to internal fixation. In addition, there was significant damage to the biceps tendon, as a result of the fracture. Estimated Blood Loss: 150 mL Complications: None Implants: A Shoulder Innovations reverse total shoulder arthroplasty system was utilized. A 24 mm 5 degree angled, 10mm post glenoid base plate was used with appropriate length screws. All screws were locked except for the central compression screw. A 33 mm, 6 mm lateralized glenosphere was utilized. A size 8 I 90 humeral implant shoulder innovations was utilized with a 0 mm offset reverse humeral tray, and a 0 mm polyethylene insert. Procedure: The risks, benefits, expected results, and possible complications of the planned procedure had been explained to the patient and informed consent obtained. The patient was taken to the operating room where a general anesthetic and scalene block was administered. The right arm and shoulder were prepped and draped in the usual sterile fashion with the patient in the semi-sitting position in the beachchair on the operating table. A timeout was taken prior to surgery confirming patient identification, operative side operative site, planned procedure, administration of pre-operative antibiotics, site marking, r ecognition of allergies, and confirming presence of all necessary implants and instruments. A standard deltopectoral approach was performed. The lesser tuberosity fragment was identified, incised along the biceps tendon and from the humeral h ead. It was tagged for later repair. Next, the greater tuberosity was also isolated along with the infraspinatus insertion. The humeral head and remaining bone fragments were removed from the shoulder without difficulty. The head was free floating and had no soft tissue attachments. We therefore made the decision to proceed with a reverse prosthesis. I then went inferiorly and removed capsule and inferior capsular adhesions, carefully protecting the axillary nerve, and proceeded posteriorly also removing posterior labrum and capsular tightness. I spent a fair bit of time dissecting inferiorly and also posteriorly as well as anteriorly along the labrum to remove fragments of humeral head and gain mobilization of the proximal humerus so that we could obtain proper exposure. We slowly worked at exposure until I had appropriate exposure of the glenoid. Attention was then directed to the glenoid preparation. The central drill pin was placed, and reaming of the face the glenoid carried out at proper version. Next a central drill was used to drill a hole for the central peg in the vault of the glenoid. Next the superior and inferior footprint drills were utilized for positioning of the glenoid base plate.The glenoid base plate was brought up onto the field and tamped into position in proper rotation, and then secured with the central screw, and peripheral locking screws. I was able to obtain good solid fixation of the baseplate with no rockering or other issues. The Glenosphere was then placed into position. It was tamped into the Ayon taper with an excellent, secure fit. Broaching of the humerus was carried out, starting with the 7mm broach and going sequentially up to a size 8 mm broach. A trial humeral component was assembled on the back table, and was then placed and seated quite nicely at the appropriate level and rotation for treatment of the fracture. A trial polyethylene was positioned into the proximal humerus, and a trial reduction carried out. This determined the final proximal body height and polyethylene height. Trials were then removed. Small drill holes placed in the proximal humeral shaft, through which #2 FiberWire sutures were passed and looped around the stem of the prosthesis for greater and lesser tuberosity fixation. Next the humeral prosthesis was assembled on the back table. It was impacted and positioned in approximately 20 of retroversion, which was the best match for the version of the Glenosphere. Cementing was required to gain stable fixation and proper version and height. The cement was allowed to cure before proceeding Following this we humeral polyethylene trials again, and the 0 mm polyethylene gave us the best fit. The trial was removed and the real polyethylene insert was tamped into position and the shoulder reduced. The wound was irrigated thoroughly with normal saline and then the tuberosities were repaired back to the humeral shaft and to each other with a combination of #2 FiberWire sutures and #1 Ethibond. We had good range of motion and excellent stability. Anesthetic injection was performed in the deep and superficial soft tissues for postoperative pain control. This completed the total shoulder arthroplasty portion of the procedure. Next, exposure was made on the proximal, anterior humerus distal to the shoulder joint. The biceps tendon was identified and isolated at appropriate tension. The biceps tenodesis was accomplished with #0 Ethibond suture, repairing it nicely to the anterior humerus and surrounding soft tissue, distal to the tuberosity in an extra-articular fashion at the proximal shaft of the humerus in the area of the upper border of the insertion of the pectoralis muscle. The entire wound was irrigated thoroughly with normal saline again and then closed in layers with #0 Strata-fix suture for deep tissue,#0 Strata-fix suture for subcutaneous tissue, and 4-0 Strata-fix for skin. Dermabond and sterile dressings were applied, and the patient was returned to the recovery room in satisfactory condition. Addendum: This total shoulder arthroplasty was a reverse prosthesis arthroplasty a significantly complex operation that requires specialized training and is substantially more difficult to accomplish successfully than a total shoulder arthroplasty. In addition, postoperative care is more complex, with a higher ri sk of complication. I estimate RVUs involved for both the operative procedure, and the postoperative care are approximately 1.5 times that of a normal total shoulder arthroplasty. Additionally, the biceps tenodesis is performed outside shoulder joint in order to obtain a healthy biceps tendon to soft tissue and bone repair to the proximal humerus, and should not be considered to be an operation performed in the same joint as the primary surgery. It should therefore be separately coded and reimbursed. Electronically Signed by: Orion Gomez MD Doctor, Orthopedic Surgery Signed on: 02/09/2025 01:30 PM ORION GOMEZ MD Feb 09, 2025 13:30
[2025-02-09] MEDS: ringers solution, lacted 1,000 ML IV SCH ×2 (14:55)
[2025-02-09] MEDS: ceFAZolin/D5W- 1GM premix 50 ML IV SCH (19:04)
[2025-02-09] MEDS: vancomycin/NS 1 GM ADD-VANTAGE 250 ML IV SCH (22:40)
[2025-02-10 02:00] VITALS: BP 112/58; PULSE 81; RESP 16; TEMP 97.9; O2SAT 96
[2025-02-10 05:11] LABS: TOTAL CARBON DIOXIDE 25.3 MMOL/L (24-32)
[2025-02-10 05:15] LABS: MEAN PLATELET VOLUME 7.3 FL (7.4-10.4); RED CELL DISTRIBUTION WIDTH 14.7 % (11.5-14.5)
[2025-02-10] MEDS: oxyCODONE IR 5mg (immed. release) tablet PO PRN (05:28)
[2025-02-10] MEDS ORDERED: vancomycin/NS 1 GM ADD-VANTAGE 250 ML IV ONE (05:30)
[2025-02-10 06:00] VITALS: BP 185/63; PULSE 95; RESP 16; TEMP 96.4; O2SAT 98
--- NOTE | 2025-02-10 07:09 | DISCHARGE SUMMARY ---
Discharge Summary [facility] ~ Discharge Summary *Problems/Diagnosis: (1) S/p reverse total shoulder arthroplasty Status: Acute Admission Diagnosis: proximal humerus fracture Discharge Diagnosis\Comment: see above Operations\Procedures see above Consultants: none Complications: none Condition on DC: Stable Discharge Summary: Patient was admitted on date of surgery. Surgery went without complication. Uneventful overnight stay. Pain managed. Dressing clean and dry. Patient has had HTN this morning however she has no symptoms of HTN urgency or emergency. She has not received HTN medications yet. She is unable to get BP taken on left arm due to lymph node resection, right arm is operative side, leg BP has been high throughout her stay. Patient stable for discharge home as long as PT criteria met today and HTN improved and stable. Total Time Spent on D/C: Up to 30 Minutes Medications Home Meds: Home Medications Active Reported Rosuvastatin Calcium 20 Mg Tablet 1 Tab PO DAILY Amlodipine Besylate 5 Mg Tablet 1 Tab PO DAILY Lisinopril* (Lisinopril) 40 Mg Tablet 1 Tab PO DAILY Metoprolol Succinate 25 Mg Tab.sr.24h 100 Mg PO DAILY Clopidogrel (Clopidogrel Bisulfate) 75 Mg Tablet 1 Tab PO DAILY Tramadol Hcl (Tramadol HCl) 50 Mg Tablet 1 Tab PO BID PRN Supervising Physician Supervising Physician: Dr. Orion Gomez Problem Qualifiers (1) S/p reverse total shoulder arthroplasty: Qualified Codes: Z96.611 - Presence of right artificial shoulder joint SUJIT YANG Feb 10, 2025 07:09
[2025-02-10 10:00] VITALS: BP 130/79; PULSE 85; RESP 16; TEMP 98.7; O2SAT 98
[2025-02-10] MEDS ORDERED: HYDROmorphone inj. 0.5 MG/0.5 ML DISP.SYRIN IV PRN (10:10)
[2025-02-10 11:00] VITALS: RESP 14
== END 2025-02-10 13:45 | disposition home or self-care (01) ==
LOC: PAS 08:20 → PAS IN 11:39 → ORTHO 4S 14:50
PROVIDERS: ADMIT Orthopaedic Surgery; ATTEND Orthopaedic Surgery
DX: S42.241A 4-part fracture of surgical neck of right humerus, initial encounter for closed fracture (principal); I10 Essential (primary) hypertension; A06.1 Chronic intestinal amebiasis; M25.511 Pain in right shoulder; E78.5 Hyperlipidemia, unspecified; Z79.899 Other long term (current) drug therapy; Z98.890 Other specified postprocedural states; X58.XXXA Exposure to other specified factors, initial encounter; Y93.89 Activity, other specified; Y92.89 Other specified places as the place of occurrence of the external cause; Y99.8 Other external cause status
CPT/HCPCS: 23430; 23472; 80051; 80053; 93005; 96365; 96366; 96367; 97161; A4565; A4618; A7000; C1713; C1776; G0378; J3480; J3490; J7120; 36415; 85025; 87081; 97110; 97530; A6258; J0690; J1100; J1885; J2250; J2405; J2704; J2795; J3010; J3373